=== PATIENT | male | born 1935 | race Caucasian/White ===

== ENCOUNTER 2017-01-09 20:38 | Observation (INO) | payer OTHER ==
[~2017-01-09] VITALS: Ht 180.3 cm; Wt 110.6 kg
[~2017-01-09 20:38] MED LIST: ADVAIR HFA120 INHALA IH; ALPRAZOLAM0.25 M2 PO; AMBIEN10 MG PO; AMLODIPINE BESYL5 MG PO; ASPIR-LOW81 MG PO; ASPIRIN81 M2 PO; CARTIA XT240 MG PO; CARVEDILOL25 MG PO; CELEXA20 MG PO; CLONAZEPAM0.5 MG PO; COLACE100 MG PO; CRESTOR10 MG PO; CYMBALTA60 MG PO; DUONEB 2.5-0.5 M3 ML AEROSOL; ELIQUIS5 MG PO; FLOMAX0.4 MG PO; FUROSEMIDE80 MG PO; GABAPENTIN300 MG PO; ISOSORBIDE MONO60 MG PO; LAMICTAL200 MG PO; LAMOTRIGINE200 MG PO; LEVOFLOXACIN750 MG PO; LISINOPRIL20 MG PO; LOSARTAN POTASS50 MG PO; LYRICA300 MG PO; METFORMIN HCL500 M1 PO; METFORMIN HCL500 MG PO; METOPROLOL TART25 MG PO; NEXIUM40 MG PO; PRAMIPEXOLE DIHY1 MG PO; PREDNISONE10 MG PO; PREDNISONE5 MG PO; PRINIVIL20 MG PO; TAMSULOSIN HCL0.4 MG PO; THEO-24200 MG PO; ULTRAM50 MG PO
[2017-01-09 22:10] LABS: BASOPHIL COUNT 0.1 K/uL (0-0.1); EOSINOPHIL COUNT 0.3 K/uL (0-0.3); HEMATOCRIT 42.9 % (38.0-50.0); IMMATURE GRANULOCYTE (%) 0.6 % (0.0-0.7); INSTRUMENT ABS NEUTROPHIL CT 4.9 K/uL; LYMPHOCYTE COUNT 0.8 K/uL (1.0-2.8); MCH 26.4 PG (29.0-34.0); MCHC 32.4 G/DL (30.0-36.0); MCV 81.6 FL (86-99); MEAN PLAT.VOLUME 10.3 uM^3 (9.0-12.4); MONOCYTE (%) 7.9 % (3-12); MONOCYTE COUNT 0.5 K/uL (0-0.8); NEUTROPHIL COUNT 4.9 K/uL (1.8-6.4); PLATELET COUNT 179 K/uL (156-360); RBC DIS.WIDTH-CV 15.6 % (11.8-14.6); RBC DIS.WIDTH-SD 46.1 % (39-53); RED BLOOD COUNT 5.26 M/uL (4.00-5.50); WHITE BLOOD COUNT 6.5 K/uL (4.1-10.2)
[2017-01-09 22:13] LABS: POINT-OF-CARE METER ID UU13113702
[2017-01-09 22:15] LABS: INTER. NORMALIZED RATIO 1.6; PROTHROMBIN TIME 17.6 SEC (10.2-12.9)
[2017-01-09 22:30] LABS: TROP-I INTERPRETATION NEGATIVE; TROPONIN-I 0.01 ng/mL (0.0-0.30)
[2017-01-09 23:26] LABS: ADD MIUA? NO; BILIRUBIN NEGATIVE; BLOOD NEGATIVE; COLOR YELLOW ((YELLOW)); GLUCOSE (STRIP) NEGATIVE; KETONES NEGATIVE; LEUKOCYTES NEGATIVE; NITRITE NEGATIVE; PROTEIN (STRIP) 30; SPECIFIC GRAVITY 1.013 (1.000-1.030); UCUL ADDED? NO; UROBILINOGEN 0.2 MG/DL (0.2-1.0)
[2017-01-10 02:37] LABS: CHLORIDE 108 mEq/L (99-109); POTASSIUM 3.9 mEq/L (3.7-5.4); SODIUM 145 mEq/L (136-147)
[2017-01-10 02:38] LABS: GLUCOSE 97 mg/dL (70-99)
[2017-01-10 02:40] LABS: ANION GAP 10 MEQ/L (2-14)
[2017-01-10 02:42] LABS: GFR ESTIMATE (CALCULATED) 33 mL/min/
[2017-01-10 02:43] LABS: UREA NITROGEN (BUN) 30 mg/dL (9-23)
[2017-01-10 04:34] VITALS: BP 130/86
[2017-01-10 05:06] LABS: HEMATOCRIT 40.4 % (38.0-50.0); MCH 26.3 PG (29.0-34.0); MCHC 32.7 G/DL (30.0-36.0); MCV 80.6 FL (86-99); MEAN PLAT.VOLUME 10.7 uM^3 (9.0-12.4); PLATELET COUNT 172 K/uL (156-360); RBC DIS.WIDTH-CV 15.3 % (11.8-14.6); RBC DIS.WIDTH-SD 44.6 % (39-53); RED BLOOD COUNT 5.01 M/uL (4.00-5.50); WHITE BLOOD COUNT 5.9 K/uL (4.1-10.2)
[2017-01-10 05:47] LABS: ALKALINE PHOSPHATASE 72 IU/L (3-129); ANION GAP 9 MEQ/L (2-14); CHLORIDE 109 MEQ/L (99-109); GFR ESTIMATE (CALCULATED) 42 mL/min/; GLUCOSE 84 mg/dL (70-99); POTASSIUM 3.7 MEQ/L (3.7-5.4); SAMPLE HEMOLYSIS CHECK 0; SAMPLE ICTERIC CHECK 0; SAMPLE LIPEMIA CHECK 0; SODIUM 145 MEQ/L (136-147); TOTAL BILIRUBIN 0.7 MG/DL (0.0-1.0); UREA NITROGEN (BUN) 27 mg/dL (9-23)
[2017-01-10 07:44] VITALS: BP 136/70
[2017-01-10 07:45] VITALS: BP 143/81
[2017-01-10 07:50] LABS: POINT-OF-CARE METER ID UU13113831
[2017-01-10 11:35] VITALS: BP 114/66
[2017-01-10 12:46] LABS: POINT-OF-CARE METER ID UU13113831
[2017-01-10 15:58] VITALS: BP 148/80
[2017-01-10 16:26] LABS: POINT-OF-CARE METER ID UU13113700
== END 2017-01-10 18:16 | disposition home or self-care (01) ==
LOC: EME 20:38 → EDOF 01-10 02:13 → ENRESERV 01-10 02:17 → 5WEST 01-10 04:16
PROVIDERS: Emergency Medicine; Internal Medicine
DX: R55 Syncope and collapse (principal); I48.2 Chronic atrial fibrillation; B02.29 Other postherpetic nervous system involvement; I12.9 Hypertensive chronic kidney disease with stage 1 through stage 4 chronic kidney disease, or unspecified chronic kidney disease; Z86.69 Personal history of other diseases of the nervous system and sense organs; E11.22 Type 2 diabetes mellitus with diabetic chronic kidney disease; N18.3 Chronic kidney disease, stage 3 (moderate); N17.9 Acute kidney failure, unspecified; Z91.81 History of falling; I49.5 Sick sinus syndrome; J44.9 Chronic obstructive pulmonary disease, unspecified; R53.1 Weakness; E78.5 Hyperlipidemia, unspecified; N40.0 Benign prostatic hyperplasia without lower urinary tract symptoms; E66.9 Obesity, unspecified; Z68.34 Body mass index [BMI] 34.0-34.9, adult; F41.9 Anxiety disorder, unspecified; Z96.653 Presence of artificial knee joint, bilateral; Z79.84 Long term (current) use of oral hypoglycemic drugs; Z79.01 Long term (current) use of anticoagulants
CPT/HCPCS: 70450; 71010; 80048; 80053; 80175 90; 81003; 82948; 84484; 85025; 85027; 85610; 85730; 93005; 93306; 99281; 99285; G0378; G8978 GP CI; G8979 GP CH; G8987 GO CI; G8988 GO CH; J1815; J7030